=== PATIENT | male | born 1985 | race Caucasian/White ===

== ENCOUNTER → 2018-08-06 | Outpatient (CLI) | payer BC ==
--- NOTE | 2018-08-06 15:42 | US ---
EXAMINATION TYPE: US extremity nonvasc mass LT DATE OF EXAM: 08/06/2018 COMPARISON: CT done today. 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 Patient has palpable sac that extends off of upper thigh and hangs down for approximately 8 years. Anam florez states area is not tender or painful, but has doubled in size in the last year. Scanned palpable are that extends off of upper thigh. Area measures 6.3 x 4.9 x 6.6 cm. There is no v ascularity associated with the inner tissues. The tissue is heterogeneous. 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
--- NOTE | 2018-08-06 15:46 | CT ---
EXAMINATION TYPE: CT pelvis w con DATE OF EXAM: 08/06/2018 COMPARISON: Ultrasound same date HISTORY: Mass on left posterior thigh. CT DLP: 901 mGycm Automated exposure control for dose reduction was used. TECHNIQUE: Helical acquisition of images from the lung bases through the pelvis have been completed. CONTRAST: Performed without Oral Contrast and with IV Contrast, patient injected with 100ml mL of Isovue 300. FINDINGS: Area of abnormality extends from the posterior medial left thigh posterior to the scrotum a nd shows fat attenuation, only minimal increased soft tissue density is present, the lesion measures approximately 5.6 x 5 point to by 7 cm. Small cutaneous soft tissue nodule is present inferiorly. AORTA: No significant abnormality is appreciated. LIVER/GB: Visualized portions of the liver and gallbladder are unremarkable PANCREAS: Not entirely included SPLEEN: Only partially seen ADRENALS: Not included KIDNEYS: Visualized portions unremarkable REPRODUCTIVE ORGANS: No significant abnormality is seen BOWEL: No significant abnormality is seen. Appendix is normal. FREE AIR: No Free Air visible. ASCITES: None visible. PELVIC ADENOPATHY: None visualized. RETROPERITONEAL ADENOPATHY: No Retroperitoneal Adenopathy visible. URINARY BLADDER: No significant abnormality is seen. OSSEOUS STRUCTURES: No significant abnormality is seen. 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 LIPOSARCOMA IS FELT TO BE UNLIKELY.
== END | disposition home or self-care (01) ==
LOC: RADCTMAIN 14:23
PROVIDERS: ATTEND Surgery Plastic and Reconstructive Surgery
DX: D21.22 Benign neoplasm of connective and other soft tissue of left lower limb, including hip (principal)
CPT/HCPCS: 76882; 72193; Q9967

== ENCOUNTER → 2018-12-03 | Day surgery (SDC) | payer BC ==
[2018-12-02 09:15] VITALS: BMI 26.6
[~2018-12-03] MED LIST: BUPIVACAIN-EPI 0.25%-1:200,000 30 ML VIAL SQ ONE; DEXAMETHASONE SOD PHOSPHATE 10 MG/ML 1 ML VIAL IV ONE; HEPARIN SODIUM,PORCINE 5,000 UNIT/ML 1 ML VIAL SQ ONE; KETOROLAC 30 MG/ML 1 ML VIAL ONE; LACTATED RINGERS 1,000 ML IV ONE; LACTATED RINGERS 1,000 ML IV SCH; LIDOCAINE 1% INJ 10MG/ML (20 ML MDV) ONE; MIDAZOLAM 2 MG/2 ML VIAL IV PRN; MIDAZOLAM 2 MG/2 ML VIAL ONE; ONDANSETRON 4 MG/2 ML VIAL IVP ONE; PROPOFOL 10 MG/ML 20 ML VIAL IV ONE; Pre Op ABX Message 1 EACH MISC MISCELLANE ONE; SCOPOLAMINE 1.5MG/72HR PATCH TRANSDERM ONE; SUCCINYLCHOLINE CHLORIDE 100 MG/5 ML SYR IV ONE; fentaNYL (PF) 50 MCG/ML 2 ML AMP ONE
[2018-12-03 15:06] LABS: Basophils # (A) 0.1 k/uL (0-0.2); Basophils % (A) 1 %; Eosinophils # (A) 0.2 k/uL (0-0.7); Eosinophils % (A) 2 %; Lymphocytes # (A) 2.8 k/uL (1.0-4.8); Lymphocytes % (A) 27 %; MCH 29.8 pg (25.0-35.0); MCHC 33.3 g/dL (31.0-37.0); MCV 89.7 fL (80.0-100.0); Mean Platelet Volume 7.4; Monocytes # (A) 0.6 k/uL (0-1.0); Monocytes % (A) 5 %; Neutrophils # (A) 6.7 k/uL (1.3-7.7); Neutrophils % (A) 64 %; Platelet Count 274 k/uL (150-450); RBC 4.68 m/uL (4.30-5.90); RDW 14.4 % (11.5-15.5); WBC 10.6 k/uL (3.8-10.6)
[2018-12-03 15:47] LABS: ALT 21 U/L (21-72); AST 15 U/L (17-59); African American GFR (CKD) >90 (>60 ml/min/1.73 sqM); Albumin 1.8 g/dL (3.5-5.0); Alkaline Phosphatase 27 U/L (38-126); Anion Gap 12 mmol/L; Blood Urea Nitrogen 8 mg/dL (9-20); Calcium 7.6 mg/dL (8.4-10.2); Carbon Dioxide 16 mmol/L (22-30); Chloride 106 mmol/L (98-107); Glucose 50 mg/dL (74-99); Potassium 4.5 mmol/L (3.5-5.1); Sodium 134 mmol/L (137-145); Total Bilirubin 0.4 mg/dL (0.2-1.3); Total Protein 3.5 g/dL (6.3-8.2)
[2018-12-03 18:28] VITALS: RESP 18; TEMP 98
--- NOTE | 2018-12-03 18:28 | P.GSHP ---
History of Present Illness H&P Date: 12/03/18 CHIEF COMPLAINT: Left thigh mass HISTORY OF PRESENT ILLNESS: The patient is a 33 year-old male with history of large left thigh mass. He presents today for surgical excision. PAST MEDICAL HISTORY: Please see list. PAST SURGICAL HISTORY: Please see list. MEDICATIONS: Please see list. ALLERGIES: Please see list. SOCIAL HISTORY: Please see list. FAMILY HISTORY: No reports of Crohn disease or ulcerative colitis. REVIEW OF ORGAN SYSTEMS: CONSTITUTIONAL: No reports of fevers or chills. GI: Denies any blood in stools or constipation. PHYSICAL EXAM: VITAL SIGNS: Stable Musculoskeletal: Over 10 cm left posterior superior thigh mass pedunculated lateral to scrotum SKIN: Lesion identified along bilateral thighs. GENERAL: Well developed and in no acute distress. Pleasant. HEENT: No sclera icterus. Extraocular movements grossly intact. Moist buccal mucosa. Head is atraumatic, normocephalic. Hears conversational speech. No nasal drainage. NECK: Supple without lymphadenopathy. No JV distention. CHEST: Non-labored respirations and equal bilateral excursions. CARDIOVASCULAR: Regular rate and rhythm. Palpable 2+ radial pulses. ABDOMEN: Soft. Non-tender. Nondistended. NEUROLOGIC: No focal or lateralizing signs. PSYCH: Appropriate affect. Alert and oriented to person, place and time. ASSESSMENT: 1. Tumor along the left posterior superior thigh PLAN: 1. Will proceed of excision of left posterior superior thigh tumor 2. DVT prophylaxis. 3. Antibiotic prophylaxis. 4. Time of recovery, at least one week. Past Medical History Past Medical History: GERD/Reflux Additional Past Medical History / Comment(s): lt thigh lipoma History of Any Multi-Drug Resistant Organisms: None Reported Past Surgical History: No Surgical Hx Reported Additional Past Anesthesia/Blood Transfusion Reaction / Comment(s): has never had anesthesia Smoking Status: Current every day smoker - Past Family History Mother Family Medical History: No Reported History Medications and Allergies Home Medications Medication Instructions Recorded Confirmed Type Omeprazole [PriLOSEC] 10 mg PO DAILY PRN 12/02/18 12/03/18 History Allergies Allergy/AdvReac Type Severity Reaction Status Date / Time codeine AdvReac Rash/Hives Verified 12/03/18 15:00 Surgical - Exam Vital Signs Temp Pulse Resp BP Pulse Ox 97.5 F L 65 16 127/67 95 12/03/18 14:47 12/03/18 14:47 12/03/18 14:47 12/03/18 14:47 12/03/18 14:47 Results - Labs 12/03/18 15:01 12/03/18 15:00 Abnormal Lab Results - Last 24 Hours (Table) 12/03/18 Range/Units 15:00 Sodium 134 L (137-145) mmol/L Carbon Dioxide 16 L (22-30) mmol/L BUN 8 L (9-20) mg/dL Creatinine 0.39 L (0.66-1.25) mg/dL Glucose 50 L (74-99) mg/dL Calcium 7.6 L (8.4-10.2) mg/dL AST 15 L (17-59) U/L Alkaline Phosphatase 27 L (38-126) U/L Total Protein 3.5 L (6.3-8.2) g/dL Albumin 1.8 L (3.5-5.0) g/dL Diabetes panel 12/03/18 Range/Units 15:00 Sodium 134 L (137-145) mmol/L Potassium 4.5 (3.5-5.1) mmol/L Chloride 106 (98-107) mmol/L Carbon Dioxide 16 L (22-30) mmol/L BUN 8 L (9-20) mg/dL Creatinine 0.39 L (0.66-1.25) mg/dL Glucose 50 L (74-99) mg/dL Calcium 7.6 L (8.4-10.2) mg/dL AST 15 L (17-59) U/L ALT 21 (21-72) U/L Alkaline Phosphatase 27 L (38-126) U/L Total Protein 3.5 L (6.3-8.2) g/dL Albumin 1.8 L (3.5-5.0) g/dL Calcium panel 12/03/18 Range/Units 15:00 Calcium 7.6 L (8.4-10.2) mg/dL Albumin 1.8 L (3.5-5.0) g/dL Pituitary panel 12/03/18 Range/Units 15:00 Sodium 134 L (137-145) mmol/L Potassium 4.5 (3.5-5.1) mmol/L Chloride 106 (98-107) mmol/L Carbon Dioxide 16 L (22-30) mmol/L BUN 8 L (9-20) mg/dL Creatinine 0.39 L (0.66-1.25) mg/dL Glucose 50 L (74-99) mg/dL Calcium 7.6 L (8.4-10.2) mg/dL Adrenal panel 12/03/18 Range/Units 15:00 Sodium 134 L (137-145) mmol/L Potassium 4.5 (3.5-5.1) mmol/L Chloride 106 (98-107) mmol/L Carbon Dioxide 16 L (22-30) mmol/L BUN 8 L (9-20) mg/dL Creatinine 0.39 L (0.66-1.25) mg/dL Glucose 50 L (74-99) mg/dL Calcium 7.6 L (8.4-10.2) mg/dL Total Bilirubin 0.4 (0.2-1.3) mg/dL AST 15 L (17-59) U/L ALT 21 (21-72) U/L Alkaline Phosphatase 27 L (38-126) U/L Total Protein 3.5 L (6.3-8.2) g/dL Albumin 1.8 L (3.5-5.0) g/dL
--- NOTE | 2018-12-03 18:30 | P.PCN ---
Date of Procedure: 12/03/18 Preoperative Diagnosis: Left posterior superior thigh mass Postoperative Diagnosis: Same Procedure(s) Performed: Excision of pedunculated subcutaneous tissue 10 cm left superior posterior thigh mass, complex closure of left superior posterior wound 9 x 6.5 cm Anesthesia: GETA, local Surgeon: Toña Villarreal Estimated Blood Loss (ml): 5 Pathology: other (Left superior posterior thigh mass) Condition: stable Disposition: same day Operative Findings: 1. Complex left posterior superior thigh mass extension into to subcutaneous tissue excised in total 2. Complex wound 9 x 6.5 cm with wide undermining for multiple layer closure including skin glue tape Plan - Discharge Summary Discharge Rx Participant: Yes New Discharge Prescriptions: No Action Omeprazole [PriLOSEC] 10 mg PO DAILY PRN PRN Reason: acid reflux Discharge Medication List Omeprazole [PriLOSEC] 10 mg PO DAILY PRN 12/02/18 [History]
[2018-12-03] MEDS: HYDROmorphone 0.5 MG/0.5 ML SYRINGE IVP PRN ×2 (18:33→18:41)
[2018-12-03 19:35] VITALS: BP 128/74; PULSE 77
== END | disposition home or self-care (01) ==
LOC: OR 14:16
PROVIDERS: ATTEND Surgery Plastic and Reconstructive Surgery
DX: L72.0 Epidermal cyst (principal); L02.416 Cutaneous abscess of left lower limb; F17.200 Nicotine dependence, unspecified, uncomplicated; K21.9 Gastro-esophageal reflux disease without esophagitis; M79.3 Panniculitis, unspecified; Z88.5 Allergy status to narcotic agent; Z79.899 Other long term (current) drug therapy
CPT/HCPCS: 88304; 80053; 85025; 87070; 87205; 87075; 87077; 87186; 11406; 13121; 13122 ×3; J2250; J1644; J1100; J0690; J2405; J2001; J3010; J1885; J0330; J2704; J1170